=== PATIENT | female | born 1975 | race Caucasian/White ===

== ENCOUNTER 2018-09-20 11:14 | Emergency (ER) | payer OTHER, SELFPAY ==
[2018-09-20] MEDS ORDERED: Lidocaine 2% w/Epinephrine 1:200K 20 ML VIAL ONE (11:45)
[2018-09-20] MEDS ORDERED: HYDROcodone/Acetaminophen 5/325 mg Tablet ONE (11:45)
[2018-09-20] MEDS ORDERED: Ibuprofen 800 MG TAB ONE (11:45)
--- NOTE | 2018-09-20 14:53 | RAD ---
THREE VIEWS RIGHT FOOT: HISTORY: Foreign object in the right foot. COMPARISON: None. FINDINGS: Lisfranc alignment is maintained. Joint space is preserved. No fracture. There is a linear, likely metallic density measuring 1 cm in maximum dimension projecting over the base of the 5th toe, at the level of the proximal phalanx. IMPRESSION: Radiopaque foreign body at the proximal aspect of the 5th toe. POS: [facility]
== END 2018-09-20 13:23 | disposition short-term general hospital (02) ==
LOC: MADERS 11:14
DX: S91.341A Puncture wound with foreign body, right foot, initial encounter (principal); W45.8XXA Other foreign body or object entering through skin, initial encounter
CPT/HCPCS: 99284

== ENCOUNTER 2022-05-17 23:31 | Emergency (ER) | payer BC, OTHER | END 2022-05-18 00:03 | disposition left against medical advice (07) | LOC: MADERS 23:31 | DX: Z53.21 Procedure and treatment not carried out due to patient leaving prior to being seen by health care provider (principal) ==